=== PATIENT | male | born 1990 | race Caucasian/White ===

== ENCOUNTER 2017-05-26 17:27 | Emergency (ER) | payer OTHER ==
[2017-05-26 18:40] VITALS: BP 137/84
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
[2017-05-26] MEDS ORDERED: HYDROCODONE/ACETAMINOPHEN 5-325 MG TABLET PO ONE (19:10)
== END 2017-05-26 19:26 | disposition home or self-care (01) ==
LOC: ER 17:27
DX: S01.81XA Laceration without foreign body of other part of head, initial encounter (principal); Y04.2XXA Assault by strike against or bumped into by another person, initial encounter; Y92.199 Unspecified place in other specified residential institution as the place of occurrence of the external cause
CPT/HCPCS: 99284